=== PATIENT | female | born 1995 ===

== ENCOUNTER 2022-03-04 08:00 | Outpatient (RCR) | payer BC | END 2022-03-07 | LOC: PT 08:00 | PROVIDERS: ATTEND Specialist | DX: S83.91XD Sprain of unspecified site of right knee, subsequent encounter (principal); S93.401D Sprain of unspecified ligament of right ankle, subsequent encounter; R26.2 Difficulty in walking, not elsewhere classified; M62.81 Muscle weakness (generalized); M25.561 Pain in right knee; M25.571 Pain in right ankle and joints of right foot ==